=== PATIENT | female | born 1985 | race Caucasian/White ===

== ENCOUNTER → 2020-02-26 13:24 | Outpatient (BNVA) | payer OTHER, SELFPAY | PROVIDERS: PCP Internal Medicine; Visit Provider Nurse Practitioner Family | DX: Z76.89 Persons encountering health services in other specified circumstances (principal) ==

== ENCOUNTER 2020-03-17 09:59 | Outpatient (REF) | payer OTHER, SELFPAY ==
[2020-03-17 11:16] LABS: MANUAL DIFF FLAG NO
[2020-03-17 11:20] LABS: Basophils Absolute Auto 0.1 X10*3/uL (0.0-0.2); Basophils Percent Auto 0.5 % (0-2); Eosinophils Percent Auto 0.3 % (0-4); Hematocrit 40.3 % (37-47); Hemoglobin 13.7 g/dl (12.0-16.0); Imm Gran Abs Auto 0.03 X10*3/uL (0.00-0.03); Imm Gran Pct Auto 0.3 % (0.0-0.4); Lymphocytes Absolute Auto 2.1 X10*3/uL (1.2-4.9); Lymphocytes Percent Auto 21.9 % (20-40); Mean Corpuscular Hemoglobin 31.4 pg (27.0-33.0); Mean Corpuscular Volume 92.2 fL (80-98); Mean Platelet Volume 9.9 fL (9.4-12.3); Monocytes Absolute Auto 0.6 X10*3/uL (0.1-1.2); Monocytes Percent Auto 6.6 % (2-11); Neutrophils Absolute Auto 6.7 X10*3/uL (2.0-8.3); Neutrophils Percent Auto 70.4 % (45-73); Platelet Count 312 X10*3/uL (160-400); Red Blood Count 4.37 X10*6/uL (4.20-5.50); Red Cell Distribution Width 12.1 % (11.0-16.0); White Blood Count 9.5 X10*3/uL (4.8-10.8)
[2020-03-17 11:53] LABS: Alanine Aminotransferase 14 U/L (0-31); Albumin Level 4.5 g/dL (3.5-5.0); Alkaline Phosphatase 42 U/L (39-117); Anion Gap 15 (12-20); Aspartate Amino Transferase 18 U/L (5-31); Bilirubin Total 0.4 mg/dL (0.0-1.0); Blood Urea Nitrogen 17 mg/dL (9-16); Carbon Dioxide 23 mmol/L (22-29); Chloride 102 mmol/L (96-108); Cholesterol 186 mg/dL; Estimated Glomerular Filt Rate 52; Glucose Fasting 77 mg/dL (60-99); HDL Cholesterol 52 mg/dL; LDL Cholesterol Calculated 117 mg/dl; Potassium 4.3 mmol/l (3.3-5.1); Sodium 136 mmol/L (135-145); Total Protein 7.3 g/dL (6.5-8.0); Triglycerides 88 mg/dL
[2020-03-17 11:56] LABS: TSH reflex Free T4 1.46 mIU/mL (0.32-4.0)
== END 2020-03-17 10:00 | disposition home or self-care (01) ==
LOC: HO.HMGCLDS 09:59
PROVIDERS: PCP Internal Medicine; Visit Provider Internal Medicine
DX: Z00.01 Encounter for general adult medical examination with abnormal findings (principal); R12 Heartburn; Z80.8 Family history of malignant neoplasm of other organs or systems
CPT/HCPCS: 36415; 80053; 80061; 84443; 85025

== ENCOUNTER → 2020-03-25 11:23 | Outpatient (BNVA) | payer OTHER, SELFPAY | PROVIDERS: PCP Internal Medicine; Referring Provider Internal Medicine; Visit Provider Nurse Practitioner Family ==

== ENCOUNTER 2020-04-01 | Outpatient (REF) | payer OTHER, SELFPAY | END 2020-04-01 00:01 | disposition home or self-care (01) | LOC: HO.HMGCLNP | PROVIDERS: Visit Provider Nurse Practitioner Family | DX: K21.9 Gastro-esophageal reflux disease without esophagitis (principal) | CPT/HCPCS: 87338 ==

== ENCOUNTER → 2020-04-02 13:06 | Outpatient (REF) | payer OTHER, SELFPAY | LOC: HO.SL 13:06 | PROVIDERS: PCP Internal Medicine; Visit Provider Nurse Practitioner Family | DX: G47.9 Sleep disorder, unspecified (principal); R06.83 Snoring | CPT/HCPCS: 95806 ==

== ENCOUNTER → 2020-05-05 13:49 | Outpatient (BNVA) | payer OTHER, SELFPAY | PROVIDERS: PCP Internal Medicine; Visit Provider Nurse Practitioner Family ==

== ENCOUNTER → 2020-06-02 14:24 | Outpatient (BNVA) | payer OTHER, SELFPAY | PROVIDERS: PCP Internal Medicine; Visit Provider Nurse Practitioner Family ==

== ENCOUNTER → 2020-06-17 10:42 | Outpatient (BNVA) | payer OTHER, SELFPAY | PROVIDERS: PCP Internal Medicine; Visit Provider Nurse Practitioner Family ==

== ENCOUNTER → 2020-08-26 08:36 | Outpatient (BNVA) | payer OTHER, SELFPAY | PROVIDERS: Referring Provider Internal Medicine; Visit Provider Nurse Practitioner Family ==

== ENCOUNTER → 2020-08-27 20:28 | Outpatient (REF) | payer OTHER, SELFPAY | LOC: HO.SL 20:28 | PROVIDERS: PCP Internal Medicine; Visit Provider Nurse Practitioner Family | DX: G47.9 Sleep disorder, unspecified (principal); R06.83 Snoring | CPT/HCPCS: 95810 ==

== ENCOUNTER 2021-01-02 11:04 | Day surgery (SDC) | payer OTHER, SELFPAY ==
[2021-01-02 11:32] VITALS: BP 140/89; PULSE 58; RESP 20; TEMP 36.6; O2SAT 97; BMI 27.3
[2021-01-02 11:39] LABS: UPreg QC Valid YES; Urine Pregnancy NEGATIVE (NEGATIVE)
--- NOTE | 2021-01-02 11:49 | P.CONAN_ITS ---
FORM[facility]LY [facility] Active Problems Active Problems: All Active Problems (Updated 05/20/20 @ 10:11 by MISTY Regalado) Snoring (Acute) Sleep disorder, unspecified (Acute) Loud snoring (Acute) Family history of thyroid cancer (Acute) Annual visit for general adult medical examination with abnormal findings (Acute) Chronic heartburn (Acute) History of surgery on wrist (Acute) Positive CLAUDIA (antinuclear antibody) (Acute) Past Medical History Medical History Chronic heartburn Family history of thyroid cancer H/O fracture of wrist Loud snoring Normal Papanicolaou smear Positive CLAUDIA (antinuclear antibody) Scoliosis Family History Family History Father H/O myocardial ischemia, Onset Age: 50 Mother Hypercholesteremia Maternal Grandfather No problems noted. Paternal Grandfather H/O myocardial ischemia Sister History of prediabetes Maternal Grandmother Thyroid cancer Surgical History Surgical History History of surgery on wrist History of Problems with Anesthesia: No Social History Social History Household Members: Significant Other Alcohol intake: current Alcohol intake frequency: holidays/special occasions only Alcohol type: beer Patient Tobacco Use Status: Never used Tobacco Substance Use Type: Marijuana Current occupational status: employed Current occupation: Teacher Meds Allergies Allergy/AdvReac Type Severity Reaction Status Date / Time No Known Allergies Allergy Verified 01/02/21 11:18 Home Medications Medication Instructions Recorded Confirmed Last Taken Type multivitamin 1 tab PO DAILY 02/05/20 11/21/20 Unknown History ketoconazole 2 % shampoo 1 appl TOPICAL 2XW 08/26/20 11/21/20 Unknown History ketoconazole 2 % topical cream 1 appl TOPICAL 08/26/20 Unknown History Exam Exam Date and Time: January 02, 2021 1149 Height,Weight and Vital Signs: Height 5 ft 9 in Weight 83.915 kg Last Vital Signs Temp 97.8 F 01/02/21 11:32 Pulse 58 01/02/21 11:32 Resp 20 01/02/21 11:32 BP 140/89 H 01/02/21 11:32 Pulse Ox 97 01/02/21 11:32 Pertinent Lab Results Pertinent Lab Results: Laboratory Tests 01/02/21 Unknown Urine Test NEGATIVE Airway Mallampati Class: II TM Dist: >3cm Neck ROM: Full Loose/Missing/Broken Teeth: No Heart: RRR Lungs: CTA Assessment and Plan Assessment Anesthesia Assessment: Anesthesia Plan Discussed and Chart Reviewed Final Anesthetic Review History of Problems with Anesthesia: No NPO: Yes ASA Class: II Final Preanesthetic Review: Meds/Allgs Chart Reviewed, Consent Obtained/Reviewed and Anes Risks/Benef Reviewed Patient Risk: Low Procedure Risk: Intermediate Anesthetic Plan Anesthetic Plan: MAC: Disposition: Standard PACU
[2021-01-02] MEDS: Lactated Ringers 1,000 ML 50 ML IVCONT (12:11)
--- NOTE | 2021-01-02 12:25 | MHC.SHP ---
Pre-Procedural Eval Section A Date of Service: 01/02/21 The patient is an INPATIENT: No The History & Physical has been completed within 30 days and I have reviewed it.: No Section B Chief Complaint: Chronic Heartburn Details of Present Illness: GERD Relevant Family History (Specify if Yes): No Relevant Social History: None Present Medications: see Short Stay Collaborative assessment Medical History: Significant History (Chronic heartburn Family history of thyroid cancer H/O fracture of wrist Loud snoring Normal Papanicolaou smear Positive CLAUDIA (antinuclear antibody) Scoliosis) History of Previous Operations: Relevant previous surgery/procedure and date(s) (History of surgery on wrist) Allergies: Allergies Allergy/AdvReac Type Severity Reaction Status Date / Time No Known Allergies Allergy Verified 01/02/21 11:18 Review of Systems Sugical H&P ROS: Negative: Constitution, Cardiovascular and Respiratory and Yes, Specify: Gastrointestinal (heartburn) Exam Surgical H&P Exam: Normal: Heart, Normal: Lungs, Normal: Extremities and Normal: Abdomen Plan Diagnosis/Plan: Unchanged I have reviewed the history and physical and performed a pertinent physical examination on my patient. No changes have occurred unless specified.
--- NOTE | 2021-01-02 12:59 | PM.OP ---
Brief Operative Note Date of Service: 01/02/21 Pre-op diagnosis: GERD Post-op diagnosis: other (GERD, hiatal hernia, gastritis) Procedure: FLEXIBLE TRANSORAL UPPER GASTROINTESTINAL ENDOSCOPY WITH BIOPSIES Consent: Indications for the procedure and potential complications of bleeding, perforation, reaction to medications and missed diagnosis were discussed with the patient and informed consent was obtained. Instrument: Olympus GIF H 190 mid size upper endoscope Monitoring: Vital signs and clinical assessment, continuous EKG monitoring, Pulse oximetry, Carbon Dioxide monitoring and blood pressure monitoring were done throughout the procedure. Procedure: The patient was placed in the left lateral decubitis position and pre-procedure medications were administered and a bite block was placed. The endoscope was inserted into the mouth and advanced under direct vision to the third part of duodenum. A careful inspection was made as the upper endoscope was withdrawn including a retroflexed examination of the proximal stomach; Findings and interventions are described below. Findings: Larynx: Normal Esophagus: GE junction at 38 cms, small hiatal hernia 38 to 40 cms. Irregular Z line - biopsied to check for Brian's. Biopsies were obtained from proximal esophagus to check for EOE. Stomach: Mild gastric erythema. Biopsies were obtained. Grade 2 flap valve on retroflexed examination of the cardia. Duodenum: Normal bulb and descending duodenum Intervention: Biopsies as noted above Impression and Post Procedure Diagnosis: Endoscopy Findings: ESOPHAGUS: Small hiatal hernia - bxed to check for EOE and Brian's metaplasia STOMACH: Mild gastritis Plan: Await pathology results Patient has an appointment on 01/16/21 in the GI Clinic with Swathi Domingo NP. Above findings were reviewed with the patient and GERD and Hiatal Hernia handouts were given in the discharge area Surgeon: Jinny Maldonado MD Anesthesia: MAC (Nuvia Quinn CRNA) Was an Store Operations Manager used for this Procedure?: Yes Store Operations Manager: Dalia Buckley Estimated blood loss (mL): 0 Pathology: other (A. gastric antrum, R/O H. pylori B. distal esophagus, R/O Brian's C. proximal esophagus, R/O EOE) Condition: stable Disposition: PACU
[2021-01-02 13:02] VITALS: BP 122/77; PULSE 76; RESP 15; TEMP 36.3; O2SAT 96
--- NOTE | 2021-01-02 13:02 | P.OP_ITS ---
Operative Note Operative Note Date of Service: 01/02/21 Narrative: Pre-op diagnosis:?GERD Post-op diagnosis:?other (GERD, hiatal hernia, gastritis) Procedure:? FLEXIBLE TRANSORAL UPPER GASTROINTESTINAL ENDOSCOPY WITH BIOPSIES Consent:?Indications for the procedure and potential complications of bleeding, perforation, reaction to medications and missed diagnosis were discussed with the patient and informed consent was obtained. Instrument:?Olympus GIF H 190 mid size upper endoscope Monitoring: Vital signs and clinical assessment, continuous EKG monitoring, Pulse oximetry, Carbon Dioxide monitoring and blood pressure monitoring were done throughout the procedure. Procedure:?The patient was placed in the left lateral decubitis position and pre-procedure medications were administered and a bite block was placed. The endoscope was inserted into the mouth and advanced under direct vision to the third part of duodenum. A careful inspection was made as the upper endoscope was withdrawn including a retroflexed examination of the proximal stomach; Findings and interventions are described below. Findings: Larynx:? Normal Esophagus: GE junction at 38 cms, small hiatal hernia 38 to 40 cms.? Irregular Z line - biopsied to check for Brian's. Biopsies were obtained from proximal esophagus to check for EOE. Stomach: Mild gastric erythema. Biopsies were obtained. Grade 2 flap valve on retroflexed examination of the cardia. Duodenum: Normal bulb and descending duodenum Intervention: Biopsies as noted above Impression and Post Procedure Diagnosis: Endoscopy Findings: ESOPHAGUS: Small hiatal hernia - bxed to check for EOE and Brian's metaplasia STOMACH: Mild gastritis Plan: Await pathology results Patient has an appointment on 01/16/21 in the GI Clinic with Swathi Domingo NP. Above findings were reviewed with the patient and GERD and Hiatal Hernia handouts were given in the discharge area Surgeon:?Jinny Maldonado MD Anesthesia:?MAC (Nuvia Quinn CRNA) Was an Diecast Machine Operator used for this Procedure?:?Yes Diecast Machine Operator:?Dalia Buckley Estimated blood loss (mL):?0 Pathology:?other (A. gastric antrum, R/O H. pylori? B. distal esophagus, R/O Brian's? C. proximal esophagus, R/O EOE) Condition:?stable Disposition:?PACU
[2021-01-02 13:17] VITALS: BP 132/74; PULSE 53; RESP 18; TEMP 36.3; O2SAT 98
== END 2021-01-02 13:30 | disposition home or self-care (01) ==
LOC: HO.SSS 14:05
PROVIDERS: PCP Internal Medicine; Visit Provider Internal Medicine Gastroenterology
PROC: 0DJ08ZZ Inspection of Upper Intestinal Tract, Via Natural or Artificial Opening Endoscopic (ICD-10-PCS; CPT 43235; principal; 2021-01-02 12:10)
DX: K21.9 Gastro-esophageal reflux disease without esophagitis (principal); K29.50 Unspecified chronic gastritis without bleeding; K44.9 Diaphragmatic hernia without obstruction or gangrene; R76.0 Raised antibody titer; R06.83 Snoring; F12.90 Cannabis use, unspecified, uncomplicated; Z79.899 Other long term (current) drug therapy
CPT/HCPCS: 43239; 81025; 88305; 88342

== ENCOUNTER → 2021-02-13 09:56 | Outpatient (BNVA) | payer OTHER, SELFPAY | PROVIDERS: PCP Internal Medicine; Referring Provider Internal Medicine; Visit Provider Nurse Practitioner Family ==

== ENCOUNTER 2022-10-14 08:06 | Outpatient (AMB) | payer BC, SELFPAY ==
--- NOTE | 2022-10-14 08:08 | MHC.PC.OV ---
Vital Signs 10/14/22 08:09 Height 5 ft 9 in Weight 184 lb BMI 27.2 BP 114/76 Blood Pressure Location Rt brachial Position Sitting Pulse 74 Pulse Source Pulse Oximeter Pulse Oximetry (%) 98 Oxygen Delivery Method Room Air Intake Visit Reasons: Physical Exam Intake Note: Patient here for annual PE. Last Pap: 2021 Allergies No Known Allergies Allergy (Verified 10/14/22 08:33) Medication List - Last Reconciled 10/14/22 by Karina Lujan MD escitalopram oxalate 10 mg PO DAILY omeprazole 20 mg PO DAILY PNV #[id number] 30 mg iron-10 mg iron-1 mg caps PO Tobacco use date assessed: 10/14/22 Dental Screening Dental Screen Date: 10/14/22 Did you have a dental visit in the last 12 months?: No Did you have a dental problem in the last 6 months where you did not have access to dental care?: No Was dental information given to patient?: Patient has dentist HPI Physical Exam HPI Details 37-year-old lady with history of chronic GERD gastritis on seen on EGD in [address] Maldonado, currently on omeprazole, here today for her physical exam. She currently 14 weeks with her 2nd child, followed at [facility]. She is currently on prenatals, and up-to-date with her Tdap has had 2 COVID vaccinations but does not want to get a booster and does not want to get flu vaccines. Her last Pap smear was done at [facility] in 2021 with normal findings. She has been diagnosed with depression after her 1st trialed currently on escitalopram 10 mg once a day which has been helping. This was started by her OBGYN and advised to continue taking throughout her current . She has been feeling well, with no complaints at present time. [facility] Medical History (Updated 10/14/22 @ 09:04 by Karina Lujan MD) Chronic heartburn Family history of thyroid cancer Gastritis H/O fracture of wrist Loud snoring Normal Papanicolaou smear Positive CLAUDIA (antinuclear antibody) depression Scoliosis Surgical History (Updated 10/14/22 @ 08:56 by Karina Lujan MD) History of esophagogastroduodenoscopy (EGD) History of surgery on wrist Family History Father H/O myocardial ischemia, Onset Age: 50 Mother Hypercholesteremia Maternal Grandfather No problems noted. Paternal Grandfather H/O myocardial ischemia Sister History of prediabetes Maternal Grandmother Thyroid cancer Social History Household Members: Significant Other Alcohol intake: current Alcohol intake frequency: holidays/special occasions only Alcohol type: beer Patient Tobacco Use Status: Never used Tobacco e-Cigarette/Vaping Use: Never Used Substance Use Type: Marijuana Current occupational status: employed Current occupation: Teacher Female Reproductive History Menstrual Other: Currently followed at [facility] Questionnaire PHQ-9 Over the last 2 weeks, how often have you been bothered by any of the following problems? 1. Little interest or pleasure in doing things: several days 2. Feeling down, depressed, or hopeless: not at all 3. Trouble falling or staying asleep, or sleeping too much: more than half the days 4. Feeling tired or having little energy: several days 5. Poor appetite or overeating: not at all 6. Feeling bad about yourself - or that you are a failure or have let yourself or your family down: not at all 7. Trouble concentrating on things, such as reading the newspaper or watching television: several days 8. Moving or speaking so slowly that other people could have noticed. Or the opposite - being so fidgety or restless that you have been moving around a lot more than usual: not at all 9. Thoughts that you would be better off or of hurting yourself in some way: not at all Total score: 5 Depression Screening Interpretation: Positive (Stable and controlled on escitalopram 10 mg daily) Depression Screening Follow-up: Existing condition and In treatment 57227 - PHQ-9 Billing: Yes Source: Developed by Drs. Marcio Fagan, Maru Holt, Spenser Mosher and colleagues, with an educational mary from [employer]. Thrive Questionnaire Date Thrive assessed: 10/14/22 I am a: Patient What is your living situation today?: I have a steady place to live Within the past 12 months, did the food you bought not last and you didn't have the money to get more?: Never true Within the past 12 months, did you worry whether your food would run out before you got money to buy more?: Never true Do you have trouble paying for medicines?: No Do you have trouble getting transportation to medical appointments?: No Do you have trouble paying your heating and electricity bill?: No Do you have trouble taking care of your child, family member or friend?: No Do you have trouble with day-to-day activities such as bathing, preparing meals, shopping, managing finances, etc.?: No Are you currently unemployed and looking for a job?: No Are you interested in more education?: No AUDIT C Alcohol Use Questionnaire (AUDIT-C) 1. How often do you have a drink containing alcohol?: Never 3. How often do you have six or more drinks on one occasion?: Never Total Score: 0 Score Reviewed/Action Taken: No GEOFFREY-7 AMB Questionnaire GEOFFREY-7 Feeling nervous, anxious, or on edge: 1 = Several days Not being able to stop or control worryin = Several days Worrying too much about different things: 1 = Several days Trouble relaxin = Several days Being so restless that it is hard to sit still: 0 = Not at all Becoming easily annoyed or irritable: 0 = Not at all Feeling afraid as if something awful might happen: 0 = Not at all Total GEOFFREY-7 score (0-4 normal; 5-9 mild; 10-14 moderate; 15-21 severe): 4 Source: Developed by Drs. Marcio Fagan, Maru Holt, Spenser Mosher and colleagues, with an educational mary from [employer]. GEOFFREY-7 Assessment Billing GEOFFREY-7 Assessment Tool: GEOFFREY-7 Assessment 44742 Review of Systems Const Denies body aches, Reports difficulty sleeping (Frequently wakes up from the night and has difficulty going back to sleep), Denies fatigue, Denies fever(s), Reports snoring (Less as per , negative sleep study) and Denies weakness Eyes Denies change in vision, Denies eye discharge and Denies itchy eyes ENT Reports no additional complaints Card Denies chest pain, Denies lightheadedness, Denies palpitations and Denies dyspnea Resp Denies chest congestion, Denies cough, Denies dyspnea, Reports snoring (Less as per , negative sleep study) and Denies wheezing GI Denies abdominal pain, Denies melena, Denies hematochezia, Denies change in bowel habits, Reports heartburn (Takes omeprazole) and Denies nausea Details: Currently 14 weeks Denies difficulty voiding, Denies nipple discharge, Denies dysuria, Denies urinary incontinence, Denies urinary urgency and Denies vaginal discharge Musc Reports no additional complaints and Denies arthralgias Skin/Breast Denies breast swelling, Denies breast pain, Denies breast mass, Denies lesions, Denies nipple discharge and Denies rash Neuro Reports no additional complaints and Denies weakness Psych Denies anxiety and Denies depression Endo Denies fatigue, Denies polydipsia, Denies polyuria and Denies palpitations Rafi/Lymph Denies easy bleeding and Denies easy bruising Aller/Immun Denies itchy eyes, Denies seasonal rhinorrhea and Denies wheezing Physical exam (Primary Care) Vital Signs: Last Vital Signs Pulse 74 10/14/22 08:09 BP 114/76 10/14/22 08:09 Pulse Ox 98 10/14/22 08:09 Oxygen Delivery Method Room Air 10/14/22 08:09 BMI result Body Mass Index 27.2 Tobacco/Smoking Status: Tobacco use Status Tobacco use date assessed 10/14/22 10/14/22 08:14 Patient Tobacco Use Status Never used Tobacco 10/14/22 08:14 e-Cigarette/Vaping Use Never Used 10/14/22 08:14 PHQ-9: PHQ-9 Score PHQ-9: Total score 5 10/14/22 09:05 Depression Screening Interpretation: Positive (Stable and controlled on escitalopram 10 mg daily) Depression Screening Follow-up: Existing condition and In treatment Thrive Assessment: Date of Thrive Assessment Date Thrive assessed 10/14/22 10/14/22 09:05 Const General: healthy appearing, comfortable and no acute distress Nutritional Appearance: average body habitus Orientation/consciousness: patient oriented x3 Limitations: no limitations HENMT Head: Yes normocephalic Ears: hearing grossly normal bilaterally, external ears normal, TM's normal bilaterally and EAC's normal General nose exam: Normal external nose present Face and sinus: Yes face symmetric Mouth: Normal oral and palatal mucosa present, tongue normal, oropharynx normal and moist mucous membranes Eyes General: appearance normal, both eyes and all related structures Pupils: Equal, round and reactive pupils present EOM: EOMs intact bilaterally Neck Neck: Yes full ROM, Yes no lymphadenopathy and Yes supple Thyroid: Thyroid normal Chest Chest palpation & inspection: normal inspection of the chest and normal palpation of entire chest wall Breast/axilla inspection: normal inspection of the breasts Breast/axilla palpation: normal palpation of the breasts and normal palpation of the axillae Resp Effort & Inspection: normal respiratory effort and able to speak in complete sentences Auscultation: clear to auscultation bilaterally Cardio Palpation: normal PMI Rate: regular rate Rhythm: regular rhythm Heart sounds: S1 normal heart sound present and S2 normal heart sound present GI Inspection: Yes normal to inspection Palpation (GI): Soft to palpation, nontender, no guarding and no masses Auscultation: normal bowel sounds General: Yes no CVA tenderness and Yes deferred (Sees [facility]) Back/Spine/Pelvis Back: no CVA tenderness and No back tenderness Skin Lesions: no lesions Rashes: no rashes Neuro General: patient oriented x3, gait normal, moves all extremities, Normal light touch and pain sensation, no focal motor deficits and CN's II-XI intact bilaterally Cranial nerves: Yes Equal, round and reactive pupils present Motor exam (neuro): 5/5 motor strength present throughout Extrem General: Yes full ROM, Yes no joint enlargement, Yes no clubbing, cyanosis or edema, Yes no pedal edema and Yes normal gait Psych Appearance: grossly normal and well kempt Mental Status: mental status grossly normal Speech and movement: Normal speech and movement present Affect: normal affect Attitude: cooperative Thought process: Normal thought process present Thought content: Normal thought content present Assessment and Plan Assessment & Plan (1) Annual visit for general adult medical examination with abnormal findings: Code(s): Z00.01 - Encounter for general adult medical examination with abnormal findings Plan: Will check appropriate labs. Recommended dental visit every 6 months and regular eye exams, at least every 2 years. Take adequate calcium in diet and vitamin-D 3 at 2000 IU per cap once a day, in addition to weight-bearing exercises to help maintain good muscle tone and weight control. Instructed to do self-breast exam, and recommended to get yearly mammogram, starting at age 40. Has had 2 COVID vaccine but declines booster and does not get flu shots, up-to-date with her Tdap. (2) Family history of thyroid cancer: Code(s): Z80.8 - Family history of malignant neoplasm of other organs or systems Plan: Will check TSH free T4, thyroid gland nonpalpable today, patient without any symptoms of hypo or hyperthyroidism (3) Chronic heartburn: Comment: Status post EGD in [address] Maldonado Code(s): R12 - Heartburn Plan: On omeprazole (4) depression: Comment: With 1st , currently on escitalopram started by her OBGYN Code(s): F53.0 - depression Plan: Currently on escitalopram 10 mg daily (5) : Code(s): Z34.90 - Encounter for supervision of normal , unspecified, unspecified trimester Plan: Followed at [facility], currently on vitamin Orders: Orders Hemoglobin and Hematocrit Today R12 - Heartburn, Z00.01 - Encounter for general adult medical examination with abnormal findings, Z80.8 - Family history of malignant neoplasm of other organs or systems Basic Metabolic Panel Fasting Today R12 - Heartburn, Z00.01 - Encounter for general adult medical examination with abnormal findings, Z80.8 - Family history of malignant neoplasm of other organs or systems Lipid Panel Today R12 - Heartburn, Z00.01 - Encounter for general adult medical examination with abnormal findings, Z80.8 - Family history of malignant neoplasm of other organs or systems TSH reflex Free T4 Today R12 - Heartburn, Z00.01 - Encounter for general adult medical examination with abnormal findings, Z80.8 - Family history of malignant neoplasm of other organs or systems Vitamin D 25-OH Total Today R12 - Heartburn, Z00.01 - Encounter for general adult medical examination with abnormal findings, Z80.8 - Family history of malignant neoplasm of other organs or systems Coding Level of Care Code Est Pt Prev Care [id number]([id number]) Diagnoses Annual visit for general adult medical examination with abnormal findings Z00.01 Family history of thyroid cancer Z80.8 Chronic heartburn R12 depression F53.0 Z34.90 Additional Codes GEOFFREY-7 Assessment Billing - GEOFFREY-7 Assessment Tool: GEOFFREY-7 Assessment [id number] ([id number])
[2022-10-14 08:09] VITALS: BP 114/76; PULSE 74; O2SAT 98; BMI 27.2
== END 2022-10-14 08:53 | disposition home or self-care (01) ==
PROVIDERS: PCP Internal Medicine; Visit Provider Internal Medicine
DX: Z00.00 Encounter for general adult medical examination without abnormal findings (principal); Z80.8 Family history of malignant neoplasm of other organs or systems; R12 Heartburn; F53.0 Postpartum depression; Z33.1 Pregnant state, incidental
CPT/HCPCS: 99395

== ENCOUNTER 2023-01-07 08:38 | Outpatient (REF) | payer BC, SELFPAY ==
[2023-01-07 11:44] LABS: Hematocrit 31.5 % (37.0-47.0); Hemoglobin 9.8 g/dl (12.0-16.0)
[2023-01-07 12:18] LABS: Anion Gap 11 (12-20); Blood Urea Nitrogen 7 mg/dL (9-16); Calcium 8.2 mg/dL (8.4-10.2); Carbon Dioxide 24 mmol/L (22-29); Chloride 106 mmol/L (96-108); Cholesterol 250 mg/dL (<200); Estimated Glomerular Filt Rate > 60; Glucose Fasting 75 mg/dL (60-99); HDL Cholesterol 63 mg/dL (>40); LDL Cholesterol Calculated 160 mg/dL (<100); Sodium 137 mmol/L (135-145); Triglycerides 136 mg/dL (<150)
[2023-01-07 12:57] LABS: TSH reflex Free T4 1.08 uIU/mL (0.32-4.0); Vitamin D 25-OH Total 43.8 ng/mL (>30)
== END 2023-01-07 08:39 | disposition home or self-care (01) ==
LOC: HO.HMGCLDS 08:38
PROVIDERS: PCP Internal Medicine; Visit Provider Internal Medicine
DX: Z00.01 Encounter for general adult medical examination with abnormal findings (principal); R12 Heartburn; Z80.8 Family history of malignant neoplasm of other organs or systems
CPT/HCPCS: 36415; 80048; 80061; 82306; 84443; 85014; 85018

== ENCOUNTER 2024-06-21 09:47 | Outpatient (AMB) | payer BC, SELFPAY ==
--- NOTE | 2024-06-21 10:06 | A.OFFPC_ITS ---
Vital Signs 06/21/24 10:10 Height 5 ft 9 in Weight 183 lb BMI 27.0 BP 122/80 Blood Pressure Location Lt brachial Position Sitting Respiration 15 Pulse 77 Pulse Source Pulse Oximeter Temp 98.1 F Temp Source Oral Pulse Oximetry (%) 99 Oxygen Delivery Method Room Air Intake Visit Reasons: Annual PE-Reschedule Intake Note: Pt is here today for her PE: Last papsmear 03/30/21 Is last menstrual period known: Yes Last menstrual period: 05/30/24 Allergies No Known Allergies Allergy (Verified 06/24/24 03:59) Medication List - Last Reconciled 06/24/24 by Karina Lujan MD escitalopram oxalate 10 mg PO DAILY omeprazole 20 mg PO DAILY Tobacco use date assessed: 06/21/24 Dental Screening Dental Screen Date: 06/21/24 Did you have a dental visit in the last 12 months?: Yes Did you have a dental problem in the last 6 months where you did not have access to dental care?: Yes Was dental information given to patient?: Patient has dentist HPI Annual PE-Reschedule HPI Details 39-year-old lady with history of chronic GERD with esophagitis, history of depression and anxiety, currently stable and controlled on escitalopram 20 mg daily, here today for her physical exam. She goes and sees [facility] for her routine Pap and pelvic exam, with last cervical cancer screening done in 2021 showing benign findings. Complains of feeling sleepy and tired all the time, wake up feeling rested, snores. [facility] Medical History (Updated 06/24/24 @ 04:38 by Karina Lujan MD) GERD with esophagitis Excessive daytime sleepiness depression Gastritis Loud snoring Family history of thyroid cancer Scoliosis Positive CLAUDIA (antinuclear antibody) Normal Papanicolaou smear H/O fracture of wrist Surgical History History of esophagogastroduodenoscopy (EGD) History of surgery on wrist Family History Father H/O myocardial ischemia, Onset Age: 50 Mother Hypercholesteremia Maternal Grandfather No problems noted. Paternal Grandfather H/O myocardial ischemia Sister History of prediabetes Maternal Grandmother Thyroid cancer Social History Household Members: Significant Other Housing: House Alcohol intake: current Alcohol intake frequency: holidays/special occasions only Alcohol type: beer Patient Tobacco Use Status: Never used Tobacco e-Cigarette/Vaping Use: Never Used Substance Use Type: Marijuana Current occupational status: employed Current occupation: Teacher Cognitive needs: No Hearing needs: No Vision needs: Yes Female Reproductive History Menstrual Date of last menstrual period: 05/30/24 Questionnaire PHQ-9 Over the last 2 weeks, how often have you been bothered by any of the following problems? 1. Little interest or pleasure in doing things: not at all 2. Feeling down, depressed, or hopeless: not at all 3. Trouble falling or staying asleep, or sleeping too much: several days 4. Feeling tired or having little energy: nearly every day 5. Poor appetite or overeating: not at all 6. Feeling bad about yourself - or that you are a failure or have let yourself or your family down: not at all 7. Trouble concentrating on things, such as reading the newspaper or watching television: nearly every day 8. Moving or speaking so slowly that other people could have noticed. Or the opposite - being so fidgety or restless that you have been moving around a lot more than usual: not at all 9. Thoughts that you would be better off or of hurting yourself in some way: not at all Total score: 7 Depression Screening Interpretation: Negative Depression Screening Done: Yes 32180 - PHQ-9 Billing: Yes Source: Developed by Drs. Marcio Fagan, Maru Holt, Spenser Mosher and colleagues, with an educational mary from [employer]. Thrive Questionnaire Date Thrive assessed: 06/21/24 I am a: Patient What is your living situation today?: I have a steady place to live Within the past 12 months, did the food you bought not last and you didn't have the money to get more?: Never true Within the past 12 months, did you worry whether your food would run out before you got money to buy more?: Never true Do you have trouble paying for medicines?: No Do you have trouble getting transportation to medical appointments?: No Do you have trouble paying your heating and electricity bill?: No Do you have trouble taking care of your child, family member or friend?: No Do you have trouble with day-to-day activities such as bathing, preparing meals, shopping, managing finances, etc.?: No Are you currently unemployed and looking for a job?: No Are you interested in more education?: No Please select the resources that you would like help with: None Currently or been in a relationship where the following occur: No concerns rep orted THRIVE Score: 0 AUDIT C Alcohol Use Questionnaire (AUDIT-C) 1. How often do you have a drink containing alcohol?: Monthly or less 2. How many drinks containing alcohol do you have on a typical day when you are drinking?: 1 or 2 3. How often do you have six or more drinks on one occasion?: Never Total Score: 1 GEOFFREY-7 AMB Questionnaire GEOFFREY-7 Date GEOFFREY - 7 assessed: 06/21/24 Feeling nervous, anxious, or on edge: 1 = Several days Not being able to stop or control worryin = Several days Worrying too much about different things: 0 = Not at all Trouble relaxin = Several days Being so restless that it is hard to sit still: 0 = Not at all Becoming easily annoyed or irritable: 2 = More than half the days Feeling afraid as if something awful might happen: 0 = Not at all Total GEOFFREY-7 score (0-4 normal; 5-9 mild; 10-14 moderate; 15-21 severe): 5 Source: Developed by Drs. Marcio Fagan, Maru Holt, Spenser Mosher and colleagues, with an educational mary from [employer]. GEOFFREY-7 Assessment Billing GEOFFREY-7 Assessment Tool: GEOFFREY-7 Assessment 85774 Review of Systems Const Denies body aches, Denies fatigue, Denies fever(s), Reports snoring ( negative sleep study) and Denies weakness Eyes Details: vobrodieamme Denies change in vision, Denies eye discharge and Denies itchy eyes ENT Reports no additional complaints Card Denies chest pain, Denies lightheadedness, Denies palpitations and Denies dyspnea Resp Denies chest congestion, Denies cough, Denies dyspnea, Reports snoring ( negative sleep study) and Denies wheezing GI Denies abdominal pain, Denies melena, Denies hematochezia, Denies change in bowel habits, Reports heartburn (Takes omeprazole) and Denies nausea Denies difficulty voiding, Denies nipple discharge, Denies dysuria, Denies urinary incontinence, Denies urinary urgency and Denies vaginal discharge Musc Reports no additional complaints and Denies arthralgias Skin/Breast Denies breast swelling, Denies breast pain, Denies breast mass, Denies lesions, Denies nipple discharge and Denies rash Neuro Reports no additional complaints and Denies weakness Psych Denies anxiety and Denies depression Endo Denies fatigue, Denies polydipsia, Denies polyuria and Denies palpitations Rafi/Lymph Denies easy bleeding and Denies easy bruising Aller/Immun Denies itchy eyes, Denies seasonal rhinorrhea and Denies wheezing Physical exam (Primary Care) Vital Signs: Last Vital Signs Temp 98.1 F 06/21/24 10:10 Pulse 77 06/21/24 10:10 Resp 15 06/21/24 10:10 BP 122/80 06/21/24 10:10 Pulse Ox 99 06/21/24 10:10 Oxygen Delivery Method Room Air 06/21/24 10:10 BMI result Body Mass Index 27.0 Tobacco/Smoking Status: Tobacco use Status Tobacco use date assessed 06/21/24 06/21/24 10:13 Patient Tobacco Use Status Never used Tobacco 06/21/24 10:13 e-Cigarette/Vaping Use Never Used 06/21/24 10:13 PHQ-9: PHQ-9 Score PHQ-9: Total score 7 06/24/24 04:00 Depression Screening Interpretation: Negative Thrive Assessment: Date of Thrive Assessment Date Thrive assessed 06/21/24 06/21/24 10:13 Currently or been in a relationship where the following occur: No concerns reported Advance Care Planning discussion: Completed/Scanned Date of discussion: 06/21/24 Who was present: Patient Forms completed: Health Care Proxy Time spent: 16-45 minutes Actual minutes spent: 2 Const General: healthy appearing, comfortable and no acute distress Nutritional Appearance: average body habitus Orientation/consciousness: patient oriented x3 Limitations: no limitations HENMT Head: Yes normocephalic Ears: hearing grossly normal bilaterally, external ears normal, TM's normal bilaterally and EAC's normal General nose exam: Normal external nose present Face and sinus: Yes face symmetric Mouth: Normal oral and palatal mucosa present, tongue normal, oropharynx normal and moist mucous membranes Eyes General: appearance normal, both eyes and all related structures Pupils: Equal, round and reactive pupils present EOM: EOMs intact bilaterally Neck Neck: Yes full ROM, Yes no lymphadenopathy and Yes supple Thyroid: Thyroid normal Chest Chest palpation & inspection: normal inspection of the chest and normal palpation of entire chest wall Breast/axilla inspection: normal inspection of the breasts Breast/axilla palpation: normal palpation of the breasts and normal palpation of the axillae Resp Effort & Inspection: normal respiratory effort and able to speak in complete sentences Auscultation: clear to auscultation bilaterally Cardio Palpation: normal PMI Rate: regular rate Rhythm: regular rhythm Heart sounds: S1 normal heart sound present and S2 normal heart sound present GI Inspection: Yes normal to inspection Palpation (GI): Soft to palpation, nontender, no guarding and no masses Auscultation: normal bowel sounds General: Yes no CVA tenderness and Yes deferred (Sees [facility]) Back/Spine/Pelvis Back: no CVA tenderness and No back tenderness Skin Lesions: no lesions Rashes: no rashes Neuro General: patient oriented x3, gait normal, moves all extremities, Normal light touch and pain sensation, no focal motor deficits and CN's II-XI intact bilaterally Cranial nerves: Yes Equal, round and reactive pupils present Motor exam (neuro): 5/5 motor strength present throughout Extrem General: Yes full ROM, Yes no joint enlargement, Yes no clubbing, cyanosis or edema, Yes no pedal edema and Yes normal gait Psych Appearance: grossly normal and well kempt Mental Status: mental status grossly normal Speech and movement: Normal speech and movement present Affect: normal affect Thought process: Normal thought process present Coding Level of Care Code Est Pt Prev Care 18-39y(60237) Diagnoses Annual visit for general adult medical examination with abnormal findings Z00.01 Family history of thyroid cancer Z80.8 Excessive daytime sleepiness G47.19 Gastroesophageal reflux disease with esophagitis without hemorrhage K21.00 Esophagitis bleeding: without hemorrhage Additional Codes GEOFFREY-7 Assessment Billing - GEOFFREY-7 Assessment Tool: GEOFFREY-7 Assessment 49196 ([id number]) PHQ-9 - 15262 - PHQ-9 Billing: Yes ([id number]) Vital Signs *Quality* - Advance Care Planning discussion: Completed/Scanned ([id number]) Vital Signs *Quality* - Time spent: 16-45 minutes ([id number]) Assessment & Plan Assessment & Plan (1) Annual visit for general adult medical examination with abnormal findings: Code(s): Z00.01 - Encounter for general adult medical examination with abnormal findings Category: Medical Plan: Will check appropriate labs. Recommended dental visit every 6 months and regular eye exams, at least every 2 years. Take adequate calcium in diet and v itamin-D 3 at 2000 IU per cap once a day, in addition to weight-bearing exercises to help maintain good muscle tone and weight control. Instructed to do self-breast exam, and recommended to get yearly mammogram, starting at age 40. Up-to-date with her cervical cancer screening, goes to [facility]. Recommended to get yearly flu vaccine, has had Tdap and RSV vaccination does not want to get COVID booster (2) Family history of thyroid cancer: Code(s): Z80.8 - Family history of malignant neoplasm of other organs or systems Category: Medical Plan: Will check TSH with free T4 reflex (3) Excessive daytime sleepiness: Code(s): G47.19 - Other hypersomnia Category: Medical Plan: Referral to Sleep Medicine ordered (4) GERD with esophagitis: Comment: Status post EGD in [address] Maldonado Code(s): K21.00 - Gastro-esophageal reflux disease with esophagitis, without bleeding Category: Medical Qualifiers: Esophagitis bleeding: without hemorrhage Qualified Code(s): K21.00 - Gastro-esophageal reflux disease with esophagitis, without bleeding Plan: Referred back to GI Clinic for follow-up, currently on omeprazole 20 mg daily Orders: Orders IRON PROFILE 06/23/24 K29.70 - Gastritis, unspecified, without bleeding, R12 - Heartburn, Z00.01 - Encounter for general adult medical examination with abnormal findings, Z13.220 - Encounter for screening for lipoid disorders, Z80.8 - Family history of malignant neoplasm of other organs or systems Alanine Aminotransferase 06/23/24 K29.70 - Gastritis, unspecified, without bleeding, R12 - Heartburn, Z00.01 - Encounter for general adult medical examination with abnormal findings, Z13.220 - Encounter for screening for lipoid disorders, Z80.8 - Family history of malignant neoplasm of other organs or systems Complete Blood Count Auto Diff 06/23/24 K29.70 - Gastritis, unspecified, without bleeding, R12 - Heartburn, Z00.01 - Encounter for general adult medical examination with abnormal findings, Z13.220 - Encounter for screening for lipoid disorders, Z80.8 - Family history of malignant neoplasm of other organs or systems Basic Metabolic Panel Fasting 06/23/24 K29.70 - Gastritis, unspecified, without bleeding, R12 - Heartburn, Z00.01 - Encounter for general adult medical examination with abnormal findings, Z13.220 - Encounter for screening for lipoid disorders, Z80.8 - Family history of malignant neoplasm of other organs or sy stems Aspartate Amino Transferase 06/23/24 K29.70 - Gastritis, unspecified, without bleeding, R12 - Heartburn, Z00.01 - Encounter for general adult medical examination with abnormal findings, Z13.220 - Encounter for screening for lipoid disorders, Z80.8 - Family history of malignant neoplasm of other organs or systems Lipid Panel 06/23/24 K29.70 - Gastritis, unspecified, without bleeding, R12 - Heartburn, Z00.01 - Encounter for general adult medical examination with abnormal findings, Z13.220 - Encounter for screening for lipoid disorders, Z80.8 - Family history of malignant neoplasm of other organs or systems Vitamin D 25-OH Total 06/23/24 K29.70 - Gastritis, unspecified, without bleeding, R12 - Heartburn, Z00.01 - Encounter for general adult medical examination with abnormal findings, Z13.220 - Encounter for screening for lipoid disorders, Z80.8 - Family history of malignant neoplasm of other organs or s ystems TSH reflex Free T4 06/23/24 K29.70 - Gastritis, unspecified, without bleeding, R12 - Heartburn, Z00.01 - Encounter for general adult medical examination with abnormal findings, Z13.220 - Encounter for screening for lipoid disorders, Z80.8 - Family history of malignant neoplasm of other organs or systems Magnesium 06/23/24 K29.70 - Gastritis, unspecified, without bleeding, R12 - Heartburn, Z00.01 - Encounter for general adult medical examination with abnormal findings, Z13.220 - Encounter for screening for lipoid disorders, Z80.8 - Family history of malignant neoplasm of other organs or systems Referrals Sleep Medicine Referral G47.19 - Other hypersomnia Gastroenterology Referral K20.90 - Esophagitis, unspecified without bleeding, K21.9 - Gastro-esophageal reflux disease without esophagitis
[2024-06-21 10:10] VITALS: BP 122/80; PULSE 77; RESP 15; TEMP 36.7; O2SAT 99; BMI 27.0
== END 2024-06-21 10:49 | disposition home or self-care (01) ==
LOC: HO.HMCC 09:48
PROVIDERS: PCP Internal Medicine; Visit Provider Internal Medicine
DX: Z00.01 Encounter for general adult medical examination with abnormal findings (principal); Z80.8 Family history of malignant neoplasm of other organs or systems; G47.19 Other hypersomnia; K21.00 Gastro-esophageal reflux disease with esophagitis, without bleeding; Z00.00 Encounter for general adult medical examination without abnormal findings

== ENCOUNTER → 2024-06-21 09:47 | Outpatient (BNVA) | payer BC, SELFPAY | PROVIDERS: PCP Internal Medicine; Visit Provider Internal Medicine | DX: Z00.01 Encounter for general adult medical examination with abnormal findings (principal); G47.19 Other hypersomnia; K21.00 Gastro-esophageal reflux disease with esophagitis, without bleeding; F32.A Depression, unspecified; F41.9 Anxiety disorder, unspecified; Z79.899 Other long term (current) drug therapy; Z80.8 Family history of malignant neoplasm of other organs or systems | CPT/HCPCS: 96127 ==

== ENCOUNTER 2024-06-23 08:40 | Outpatient (REF) | payer BC, SELFPAY ==
[2024-06-23 11:15] LABS: MANUAL DIFF FLAG NO
[2024-06-23 11:24] LABS: Basophils Percent Auto 0.7 % (0-2); Eosinophils Absolute Auto 0.1 X10*3/uL (0.0-0.4); Eosinophils Percent Auto 2.1 % (0-4); Hematocrit 36.4 % (37.0-47.0); Hemoglobin 11.8 g/dl (12.0-16.0); Lymphocytes Absolute Auto 2.2 X10*3/uL (1.2-4.9); Lymphocytes Percent Auto 41.6 % (20-40); Mean Corpuscular HGB Conc 32.4 g/dl (31.0-35.0); Mean Corpuscular Hemoglobin 27.2 pg (27.0-33.0); Mean Corpuscular Volume 83.9 fL (80.0-98.0); Mean Platelet Volume 9.8 fL (9.4-12.3); Monocytes Absolute Auto 0.5 X10*3/uL (0.1-1.2); Monocytes Percent Auto 8.6 % (2-11); Neutrophils Absolute Auto 2.5 x10*3/uL (2.0-8.3); Platelet Count 371 X10*3/uL (160-400); Red Blood Count 4.34 X10*6/uL (4.20-5.50); Red Cell Distribution Width 14.6 % (11.0-16.0); White Blood Count 5.3 X10*3/uL (4.8-10.8)
[2024-06-23 12:07] LABS: Alanine Aminotransferase 15 U/L (0-31); Anion Gap 10 (12-20); Aspartate Amino Transferase 19 U/L (5-31); Blood Urea Nitrogen 14 mg/dL (9-16); Carbon Dioxide 25 mmol/L (22-29); Chloride 107 mmol/L (96-108); Cholesterol 214 mg/dL (<200); Estimated Glomerular Filt Rate > 60; Glucose Fasting 86 mg/dL (60-99); HDL Cholesterol 52 mg/dL (>40); Iron 71 mcg/dL (30-160); LDL Cholesterol Calculated 144 mg/dL (<100); Magnesium 1.9 mg/dL (1.6-2.6); Percent Iron Saturation 22 % (15-50); Sodium 138 mmol/L (135-145); Total Iron Binding Capacity 317 mcg/dL (228-428); Triglycerides 94 mg/dL (<150); Unsaturated Iron Binding 246 ug/dL
[2024-06-23 12:25] LABS: Vitamin D 25-OH Total 46.9 ng/mL (>30)
== END 2024-06-23 08:41 | disposition home or self-care (01) ==
LOC: HO.HMGCLDS 08:40
PROVIDERS: PCP Internal Medicine; Visit Provider Internal Medicine
DX: Z00.01 Encounter for general adult medical examination with abnormal findings (principal); K29.70 Gastritis, unspecified, without bleeding; Z80.8 Family history of malignant neoplasm of other organs or systems; R12 Heartburn; Z13.220 Encounter for screening for lipoid disorders
CPT/HCPCS: 36415; 80048; 80061; 82306; 83540; 83735; 84443; 84450; 84460; 85025

== ENCOUNTER 2024-07-09 15:12 | Outpatient (AMB) | payer BC, SELFPAY ==
[2024-07-09 15:20] VITALS: BP 126/84; PULSE 80; O2SAT 98; BMI 27.0
--- NOTE | 2024-07-09 15:20 | A.OFFVIS_ITS ---
Vital Signs 07/09/24 15:20 Height 5 ft 9 in Weight 183 lb BMI 27.0 BP 126/84 Blood Pressure Location Rt brachial Position Sitting Pulse 80 Pulse Source Pulse Oximeter Pulse Oximetry (%) 98 Oxygen Delivery Method Room Air Intake Visit Reasons: Re-Est, JERSON 2021. GERD mgmt. Intake Note: ESTABLISHED PATIENT for GERD mgmt. Pt completed labs on 06/22/24. Chief Complaint; C.O. worsening reflux despite PPI therapy. Pt reports that her reflux does intermittently wake her up at night and progressively becomes worse to the point of nausea and vomiting. Pt has attempted use of OTC treatment in addition to PPI without any relief to this point. Entrance Guard Required: No Accompanied by: Self / Same As Patient Allergies No Known Allergies Allergy (Verified 06/24/24 03:59) HPI HPI Re-Est, JERSON 2021. GERD mgmt.: Details: LAST VISIT Nausea Patient reports to have nausea with occasional vomiting. I will start her on Reglan. Contraindication for use during reviewed and according to the risk there is no known risk or harm based on human data. Patient will was encouraged to call me if she will have any side effects when she is going to be taking his medication. Possible side effects of tremors discussed with patient she is to stop the medication immediately and call the office. GERD (gastroesophageal reflux disease) Continue take famotidine, avoid late night snacking. Discussed with her avoid dietary triggers as well. Patient does have a hiatal hernia and now with her that might be affecting her symptoms even more. Patient was encouraged to eat very small meals and more often. I will see her in 6 months, sooner on as needed basis. Patient is agreeable to plan of care and verbalizes understanding of instructions. She was given the opportunity to ask questions all questions answered. ? Thank you for allowing me to participate in her care Plan Medications New metoclopramide HCl (Reglan) Take 15 minutes before meals 5 mg PO TIDWMEAL 120 tabs 3RF K21.9, R11.0 TODAY'S VISIT Patient was last seen back in 2021 when she was . 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 Patient reports that since she gave to her son about 15 months ago or so she started having acid reflux again. Patient reports that it is worse at night time. Currently she is taking over the counter as insurance is not covering omeprazole 20 mg daily. Patient reports that for the most part her symptoms are worse at night time specially if she eats something later at night. Patient feels the food coming up all the way to her throat with severe burning and acid reflux. Patient sometimes has to force herself to vomit d/t aggravating symptoms. Patient dysphagia or odynophagia. Patient remembers having upper endoscopy done several years ago. She was diagnosed with hiatal hernia. Patient reports that for the most part she is moving her bowels without any issues. Patient reports to have a fair appetite. Reports that symptoms are random, does not always matter what she eats. [facility] Medical History GERD with esophagitis Excessive daytime sleepiness depression Gastritis Loud snoring Family history of thyroid cancer Scoliosis Positive CLAUDIA (antinuclear antibody) Normal Papanicolaou smear H/O fracture of wrist Surgical History History of esophagogastroduodenoscopy (EGD) History of surgery on wrist Family History Father H/O myocardial ischemia, Onset Age: 50 Mother Hypercholesteremia Maternal Grandfather No problems noted. Paternal Grandfather H/O myocardial ischemia Sister History of prediabetes Maternal Grandmother Thyroid cancer Social History Household Members: Significant Other Housing: House Alcohol intake: current Alcohol intake frequency: holidays/special occasions only Alcohol type: beer Patient Tobacco Use Status: Never used Tobacco e-Cigarette/Vaping Use: Never Used Substance Use Type: Marijuana Current occupational status: employed Current occupation: Teacher Cognitive needs: No Hearing needs: No Vision needs: Yes Physical Exam Vital Signs: Last Vital Signs Pulse 80 07/09/24 15:20 BP 126/84 07/09/24 15:20 Pulse Ox 98 07/09/24 15:20 Oxygen Delivery Method Room Air 07/09/24 15:20 BMI result Body Mass Index 27.0 Assessment & Plan Assessment & Plan (1) Nausea: Code(s): R11.0 - Nausea (2) GERD (gastroesophageal reflux disease): Code(s): K21.9 - Gastro-esophageal reflux disease without esophagitis Qualifiers: Esophagitis presence: with esophagitis Esophagitis bleeding: without hemorrhage Qualified Code(s): K21.00 - Gastro-esophageal reflux disease with esophagitis, without bleeding (3) Postprandial epigastric pain: Code(s): R10.13 - Epigastric pain (4) Dyspepsia: Code(s): R10.13 - Epigastric pain Plan Patient did well with pantoprazole in the past we will start her on that. She can take famotidine at bedtime. Patient was encouraged to avoid dietary triggers and late night snacking. Staying upright for minimum 3 hours after meals discussed with patient. Patient will be sent also for upper GI with barium swallow to re-evaluate the hernia as well as see how bed is her reflux. Will check H pylori, lipase and transglutaminase. Patient will be sent for upper endoscopy. Patient had procedure in the past with Dr. Maldonado. Patient will follow-up in the office after the procedure. She denies any issues with anesthesia in the past. No history of sleep apnea. Not on any anticoagulation medication. Patient is agreeable to plan of care and verbalizes understanding of instructions. She was given the opportunity to ask questions and all questions answered. Thank you for allowing me to participate in her care Orders: Orders Transglutaminase IgA Today R10.9 - Unspecified abdominal pain FL upper GI w Ba Swallow Today K21.9 - Gastro-esophageal reflux disease without esophagitis H pylori Ag Stool Today K21.9 - Gastro-esophageal reflux disease without esophagitis Lipase Today R10.9 - Unspecified abdominal pain Medications: New famotidine 40 mg PO BEDTIME 30 tabs 3RF K21.9 - Gastro-esophageal reflux disease without esophagitis pantoprazole take one tablet half an hour before breakfast 40 mg PO DAILY 30 tabs 3RF K21.9 - Gastro-esophageal reflux disease without esophagitis Coding Level of Care Code Est Pt Level 4 (28972) Complex EM visit Add On G2211 Diagnoses Nausea R11.0 Gastroesophageal reflux disease with esophagitis without hemorrhage K21.00 Esophagitis presence: with esophagitis Esophagitis bleeding: without hemorrhage Postprandial epigastric pain R10.13 Dyspepsia R10.13 Time Spent (min) 40 Comment 30 minutes spent with patient and additional 10 minutes spent reviewing her records
== END 2024-07-09 15:59 | disposition home or self-care (01) ==
LOC: HO.HGI 15:13
PROVIDERS: PCP Internal Medicine; Visit Provider Nurse Practitioner Family
DX: R11.0 Nausea (principal); K21.00 Gastro-esophageal reflux disease with esophagitis, without bleeding; R10.13 Epigastric pain
CPT/HCPCS: 99214

== ENCOUNTER 2024-10-17 08:25 | Outpatient (AMB) | payer BC, SELFPAY ==
[2024-10-17 08:36] VITALS: BP 120/72; PULSE 73; O2SAT 98; BMI 29.4
--- NOTE | 2024-10-17 08:36 | MHC.OFFVIS ---
Vital Signs 10/17/24 08:36 Height 5 ft 9 in Weight 199 lb 6 oz BMI 29.4 BP 120/72 Blood Pressure Location Rt brachial Position Sitting Pulse 73 Pulse Source Pulse Oximeter Pulse Oximetry (%) 98 Oxygen Delivery Method Room Air Intake Visit Reasons: 430LVM+Let INP-Hypersomina Intake Note: Patient presents [employer] Hypersomnia. Complains of feeling sleepy and tired all the time, wake up feeling rested, snores. Patient goes to bed around 9-9:30 wakes up at 6-6:30. Sometimes naps. Accompanied by: Self / Same As Patient Allergies No Known Allergies Allergy (Verified 10/17/24 08:39) HPI Comments Details: 39 year old female presents for an evaluation of hypersomnia she is referred to us by her PCP. She snores loudly and her will not share a bed with her due to the noise. She has no witnessed gasping, or apneas. She goes to bed at 9pm and wakes up at 6am uses her sound machine. She naps as she is able with her children 3 year old and 1 year old. She has one bathroom break at night and feels chronically fatigued. She has morning headaches 2-3x a week, takes otc Advil and sometimes they improve after 1 cup of coffee. She notices gets floaters, and blurry spots which start at the corner of her eyes laterally and travel medially and is usually post exercise sessions in the gym. She immediately will notice a headache come on. The headaches can continue for days, and always start at the base of neck, then migrate to the top of the head and 5/10 in intensity. She denies photophobia/ phonophobia, florals scent can trigger the headaches. She denies dizziness, vertigo, feeling off balance. 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 Memory, mood, and diet are stable. BP is normal. She has a h/o of one episode of BP when she was 15 years old. She does not smoke or drink. [facility] Medical History GERD with esophagitis Excessive daytime sleepiness depression Gastritis Loud snoring Family history of thyroid cancer Scoliosis Positive CLAUDIA (antinuclear antibody) Normal Papanicolaou smear H/O fracture of wrist Surgical History History of esophagogastroduodenoscopy (EGD) History of surgery on wrist Family History Father H/O myocardial ischemia, Onset Age: 50 Mother Hypercholesteremia Maternal Grandfather No problems noted. Paternal Grandfather H/O myocardial ischemia Sister History of prediabetes Maternal Grandmother Thyroid cancer Social History Household Members: Significant Other Housing: House Alcohol intake: current Alcohol intake frequency: holidays/special occasions only Alcohol type: beer Patient Tobacco Use Status: Never used Tobacco e-Cigarette/Vaping Use: Never Used Substance Use Type: Marijuana Current occupational status: employed Current occupation: Teacher Cognitive needs: No Hearing needs: No Vision needs: Yes Physical Exam Vital Signs: Last Vital Signs Pulse 73 10/17/24 08:36 BP 120/72 10/17/24 08:36 Pulse Ox 98 10/17/24 08:36 Oxygen Delivery Method Room Air 10/17/24 08:36 BMI result Body Mass Index 29.4 Const General: cooperative, comfortable and no acute distress Nutritional Appearance: average body habitus Orientation/consciousness: patient oriented x3 HEENT Face and sinus: Yes other ([place] palsey at age 15) Teeth and gingiva: other ([place] score is 3) Eyes Pupils: Equal, round and reactive pupils present Neck Neck: Yes full ROM Resp Effort & Inspection: normal respiratory effort and able to speak in complete sentences Neuro General: patient oriented x3 and moves all extremities Cranial nerves: Yes Facial sensation intact/muscles of mastication intact, Yes Equal, round and reactive pupils present, Yes Normal accommodation reflex present, Yes Nystagmus not present, Yes Normal facial strength present, Yes Midline tongue present, Yes Ability to bilaterally rotate head present and Yes Ability to bilaterally elevate shoulders present Cognition (Neuro): normal cognition Gait exam (Neuro): Normal gait present Motor exam (neuro): 5/5 motor strength present throughout and Normal motor muscle tone present throughout Psych Appearance: grossly normal Mental Status: mental status grossly normal Thought process: Normal thought process present Thought content: Normal thought content present Results Reviewed Results Reviewed: Labs reviewed with patient on a . Vit D and TSH is normal. Assessment & Plan Assessment & Plan (1) Excessive daytime sleepiness: Code(s): G47.19 - Other hypersomnia Category: Medical (2) Snoring: Comment: Negative sleep study done at [facility] Code(s): R06.83 - Snoring Category: Medical (3) GERD (gastroesophageal reflux disease): Code(s): K21.9 - Gastro-esophageal reflux disease without esophagitis Category: Medical Qualifiers: Esophagitis presence: esophagitis presence not specified Qualified Code(s): K21.9 - Gastro-esophageal reflux disease without esophagitis Plan HST to r/o juana Excessive Daytime Sleepiness Labs to r/o deficiencies B12/ MMA/ folate/ Ferritin/ F/u in 3 months Orders: Orders RT home sleep study Today G47.19 - Other hypersomnia Patient Instructions: Sleep Hygiene provided: set a scheduled bedtime and wake time to help regulate the circadian rhythm and balance the release of pituitary hormones. Sleep in a dark room, temperatures below 68 degrees, and no devices n bed. Limit caffeinated products 6 hours prior to bed, and limit fluids 2-4 hours prior to bed. Gentle night yoga, diffusing essential oils, and playing soft music can be relaxing. Coding Level of Care Code New Pt Level 4 (16335) Diagnoses Excessive daytime sleepiness G47.19 Snoring R06.83 Gastroesophageal reflux disease, unspecified whether esophagitis present K21.9 Esophagitis presence: esophagitis presence not specified Sleep Questionnaire Difficulty falling asleep: No Difficulty staying asleep?: No Number of arousals: 2 Snoring: Yes Witnessed apneas: No Gasping arousals: No Nocturia: No GERD: Yes Vivid dreams: Yes Acting out dreams: No Abnormal behavior in sleep: No Abnormal movements in sleep: No Morning headaches: Yes Excessive daytime sleepiness: Yes Daytime naps: Yes (1x week on the weekends) Restless legs: No Hallucinations: No Sleep paralysis: No Drop attacks: No Sleep Study: Yes CPAP: No
== END 2024-10-17 09:22 | disposition home or self-care (01) ==
LOC: HO.HSMS 08:26
PROVIDERS: PCP Internal Medicine; Visit Provider Physician Assistant Medical
DX: G47.19 Other hypersomnia (principal); R06.83 Snoring; K21.9 Gastro-esophageal reflux disease without esophagitis
CPT/HCPCS: 99204

== ENCOUNTER 2024-11-12 07:35 | Outpatient (REF) | payer BC, SELFPAY ==
[2024-11-12 10:28] LABS: Lipase 20 U/L (8-78)
== END 2024-11-12 07:36 | disposition home or self-care (01) ==
LOC: HO.HMGCLDS 07:35
PROVIDERS: PCP Internal Medicine; Visit Provider Nurse Practitioner Family
DX: R10.9 Unspecified abdominal pain (principal)
CPT/HCPCS: 36415; 83690; 86364

== ENCOUNTER 2025-01-30 09:49 | Outpatient (REF) | payer BC, SELFPAY ==
--- NOTE | ~2025-01-30 | FL_ITS ---
EXAMINATION: XR FLUOROSCOPY UPPER GI SERIES CLINICAL INFORMATION: Reflux type symptoms and epigastric pain. COMPARISON: No prior. TECHNIQUE: Fluoroscopic air contrast upper GI examination was performed utilizing standard techniques with thin and thick barium and effervescent granules. Numerous spot images were obtained. Several fluoroscopic image hold cine sequences were also obtained. FINDINGS: UPPER GI SERIES: Lateral cine images of the oropharynx and hypopharynx demonstrate normal swallow mechanism with normal epiglottic inversion and soft palate elevation. No laryngeal penetration, glottic or subglottic aspiration identified. Hypopharyngeal structures appear normal without evidence of mass or diverticulum. There was no significant cricopharyngeal achalasia. Dual and single contrast images of the esophagus demonstrate a mildly patulous caliber. There was normal contour and mucosal pattern. No evidence of stricture, mass, or ulcerations identified. Esophageal peristalsis was mildly disordered. Small to moderate-sized type I hiatus hernia. Episodic gastroesophageal reflux identified to the level of the aortic arch. Dual contrast and single contrast images of the stomach demonstrated normal contour and mucosal pattern without evidence of mass or gross ulceration. There was mild diffuse thickening of the gastric rugal folds. Contrast freely passed into the gastric antrum and duodenal bulb without delay. Single and air-contrast images of the duodenal bulb demonstrate no abnormality. The duodenal sweep has a normal appearance, course, and mucosal fold appearance. FLUOROSCOPY TIME: 3 minutes, 11 seconds Number of Spot Images:14 Number of cines obtained: 11 DOSE AREA PRODUCT: [id number] uGy-m2 (microgray-meter squared) FL/FL upper GI w Ba Swallow IMPRESSION: 1. Mildly patulous esophagus with mildly disordered esophageal peristalsis. 2. Small to moderate-sized type I hiatus hernia present. The GE junction is mildly patulous in appearance. 3. Episodic gastroesophageal reflux present to the level of the aortic arch. 4. Mild thickening of the gastric rugal folds suggesting gastritis. Electronically signed by: Del Beltran MD 01/30/2025 01:53 PM EST
== END 2025-01-30 09:50 | disposition home or self-care (01) ==
LOC: HO.XRAY 09:49
PROVIDERS: PCP Internal Medicine; Visit Provider Nurse Practitioner Family
DX: K21.9 Gastro-esophageal reflux disease without esophagitis (principal)
CPT/HCPCS: 74240

== ENCOUNTER → 2025-01-30 09:51 | Outpatient (BNV) | payer BC, SELFPAY | PROVIDERS: PCP Internal Medicine; Visit Provider Radiology Diagnostic Radiology | DX: K21.9 Gastro-esophageal reflux disease without esophagitis (principal) | CPT/HCPCS: 74246 ==